=== PATIENT | male | born 1985 | race Caucasian/White ===

== ENCOUNTER 2024-08-20 22:23 | Emergency (ER) | payer SELFPAY ==
[2024-08-20 22:26] VITALS: BP 145/93
--- NOTE | 2024-08-20 22:49 | ED.MUSCINJ ---
HPI-Injury
General
Chief Complaint: Musculo-Skeletal Complaint
Source: patient
Exam Limitations: none
Time Seen by Provider: 08/20/24 22:36
Nursing documentation reviewed up to this point in time: agreed with
History of Present Illness-Injury
Initial Injury comments:
Pleasant 38-year-old male presents with left shoulder injury. 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 He went to cut the rope and the rope broke prematurely. Patient spontaneously
shouldered the entire weight, causing his arm to drop to the ground when bearing the weight. Patient complains of left shoulder pain. Patient reports no other complaints
Past History
Past History
ED Past Medical History: None
Social History
Tobacco: Non-smoker
Personal:
Living: with family
Employment: Employed
Review of Systems
Review of Systems
Allergies reviewed?: Yes
All Other Systems: ROS reviewed and negative except as documented in HPI and ROS
Constitutional: Reports no symptoms
EENT: Reports no symptoms
Respiratory: Reports no symptoms
Cardiac: Reports no symptoms
ABD/GI: Reports no symptoms
: Reports no symptoms
Musculoskeletal: Reports muscle pain and muscle stiffness; Denies joint swelling, neck pain or back pain
Skin: Reports no symptoms
Neurological: Reports no symptoms
Endocrine: Reports no symptoms
Hematologic/Lymphatic: Reports no symptoms
Psychiatric: Reports no symptoms
Phy Exam
General Physical Exam
General Presentation: well appearing
General age: appears stated age
General Skin: warm and dry
General Habitus: normal
General Mental: alert
General Hydration: appears well hydrated
Cardiovascular Exam
Cardiovascular Exam: regular rate/rhythm
Neurological Exam
Neurological Exam: alert and oriented x3
Musculoskeletal Exam
Musculoskeletal Exam: full ROM, neuro vasc intact and other (Weakness in the left shoulder.)
Skin Exam
Skin Exam: normal color
Psychiatric Exam
Psychiatric Exam: normal mood/affect
Injury Course
Orders/Labs/Results
Orders:
Orders
08/20/24 22:31
Shoulder, Left, Trauma CR [CR Shoulder, Trauma - Left] Urgent
Comment:
Reason For Exam: injury
08/20/24 22:48
Sling Left-Treatment ONCE
*Radiology
Radiology exam reviewed: all reviewed NAD by ED Provider
*Critical Care Note
Total Time (30-74mins, 75-104mins- exclusive of procedures): Not Applicable
Patient Management
Social determinants of health affecting care: Strong social support
ED Attending Note
-
Portions of this chart may have been created with voice recognition software.� Occasional wrong word or��sound alike� substitutions may have occurred due to the inherent limitations of voice recognition software.
Discharge Plan
Departure
Patient Disposition: Home (Routine Discharge)
Date of Disposition: 08/20/24
Time of Disposition: 22:56
Patient with high blood pressure during this ER visit?: Yes
Condition: Good
Discharge Problem:
Internal derangement of left shoulder
Instructions: How to Use a Shoulder Sling, Shoulder Pain ED
Prescriptions:
No Action
metaxalone [Skelaxin] 800 MG tablet
800 mg PO .3-4 TIMES DAILY PRN PRN (Reason: MUSCLE SPASM/TIGHTNESS) Qty: 30 0RF
Referrals:
Brandon Santoyo MD [Active] - Tomorrow
Stand Alone Forms: Return to Work
Activity Restrictions/Additional Instructions:
It was a pleasure meeting you and taking part in your care. We hope for your continued healing and wellness.
Please read discharge instructions in their entirety. However, they are for general education and may not describe your exact diagnosis at discharge. Information on your ER visit and medical conditions were discussed with you along with appropriate
follow up information...
If indicated, please take your medications as instructed and indicated on discharge paperwork.
Please schedule a follow up appointment as directed. Call to schedule an appointment
Please return to the emergency department with ANY change in, persisting, or worsening of symptoms. If any of your symptoms do not improve, or persist, or become more severe within 6-12 hours, please return to the emergency department for further
care.
Please return to the emergency department if you develop a headache, neck pain/stiffness, fever greater than 100.4F, chest pain, shortness of breath, persistent nausea, vomiting, slurred speech, difficulty walking, numbness/tingling, weakness, signs
of infection or any other symptoms that are worrisome to you.
If you have any questions or concerns please do not hesitate to call the Hospital at or E-mail me directly at [email or web address]
Interventions
Interventions:
*Risk Screen - Suicide Last Done: 08/20/24 22:26
*General Assessment Last Done: 08/20/24 22:26
*Neglect/Abuse Screening Last Done: 08/20/24 22:26
ED- Fall Risk Assessment Last Done: 08/20/24 22:26
*ED COVID-19 Vaccine History Last Done: 08/20/24 22:26
Discharge Date and Time
Print Language: CZECH
[2024-08-20 23:23] VITALS: BP 145/74
== END 2024-08-20 23:24 | disposition home or self-care (01) ==
LOC: EMR 22:23
PROVIDERS: EMERGENCY PHYSICIAN Student in an Organized Health Care Education/Training Program
DX: S49.92XA Unspecified injury of left shoulder and upper arm, initial encounter (principal); X50.0XXA Overexertion from strenuous movement or load, initial encounter; Y99.0 Civilian activity done for income or pay
CPT/HCPCS: 99283; 73030

== ENCOUNTER → 2024-10-02 13:18 | Outpatient (REF) | payer OTHER, SELFPAY | LOC: RAD 13:18 | PROVIDERS: ATTENDING PHYSICIAN Student in an Organized Health Care Education/Training Program | DX: S43.432A Superior glenoid labrum lesion of left shoulder, initial encounter (principal) | CPT/HCPCS: 23350; 73040; 73222 ==

== ENCOUNTER 2024-12-09 06:13 | Day surgery (SDC) | payer OTHER, SELFPAY ==
[2024-12-09] VITALS (9 sets, daily range): BP systolic 101–137; BP diastolic 69–89; BMI 26.8
[2024-12-09] MEDS: NORMOSOL-R/PLASMALYTE-A 1000 IV (11:17)
--- NOTE | 2024-12-09 16:25 | W.IMMPOSTOP ---
Surgical Immed Post Op Note
-
Primary Surgeon: Gabriele Justice MD
Assisting Surgeon: Evette Hernández PA-C
Pre-op Diagnosis: left shoulder posterior labral tear
Post-op Diagnosis: left shoulder posterior labral tear, posterior glenoid chondrosis
Procedure Performed: left shoulder arthroscopic posterior labral repair
Anesthesia Type: general with regional block
Specimen / Cultures: none
Estimated Blood Loss: 5mL
Complications: none apparent
Operative Findings: 7:00-11:00 labral tear posteriorly, posterior glenoid mild chondrosis, intact rotator cuff and biceps tendon
Implant: Arthrex FiberTak 1.8mm with #2 suture x3
Operative dictation #: [id number]
== END 2024-12-09 17:54 | disposition home or self-care (01) ==
LOC: SDS 06:13
PROVIDERS: ATTENDING PHYSICIAN Student in an Organized Health Care Education/Training Program
DX: S43.432A Superior glenoid labrum lesion of left shoulder, initial encounter (principal); X58.XXXA Exposure to other specified factors, initial encounter; Y99.0 Civilian activity done for income or pay
CPT/HCPCS: 29806